=== PATIENT | female | born 1955 | race Caucasian/White ===

== ENCOUNTER 2022-11-02 14:54 | Emergency (ER) | payer MEDICARE, MEDICAID ==
[~2022-11-02] VITALS: Ht 162.6 cm; Wt 67.4 kg
[2022-11-02 16:05] LABS: CLARITY,URINE SLIGHTLY CLOUDY (Clear); COLOR,URINE YELLOW (Yellow); GLUCOSE, URINE NEGATIVE (Neg); KETONES,URINE TRACE mg/dl (Neg); LEUKOCYTE ESTERASE ,URINE SMALL (Neg); NITRITES, URINE POSITIVE (Neg); OCCULT BLOOD,URINE NEGATIVE (Neg); PH,URINE 5.5 (4.8-8.0); PROTEIN,URINE NEGATIVE (Neg); UROBILINOGEN,URINE 0.2 E.U/dL (0.2-1.0)
[2022-11-02 16:09] LABS: UA COLLECTION TYPE CLN CATCH MIDSTREAM
[2022-11-02 16:10] LABS: BACTERIA,URINE 3+ /HPF (Neg); MUCUS STRANDS NONE SEEN /LPF (Neg); RBC,URINE NONE SEEN /HPF (0-2); SQUAMOUS EPITHELIAL CELL,UR FEW /LPF (FEW)
[2022-11-02] MEDS ORDERED: CEPH-585 PO (16:31)
[2022-11-02 16:57] VITALS: BP 151/97
== END 2022-11-03 05:16 | disposition home or self-care (01) ==
LOC: ER 14:54
DX: N39.0 Urinary tract infection, site not specified (principal); Z88.2 Allergy status to sulfonamides
CPT/HCPCS: 81001; 87077; 87088; 87186; 99283

== ENCOUNTER 2024-05-28 01:52 | Inpatient (IN) | payer MEDICARE, OTHER ==
[~2024-05-28] VITALS: Ht 162.6 cm; Wt 65.9 kg
[2024-05-28] VITALS (16 sets, daily range): BP systolic 89–118; BP diastolic 54–71; PULSE 68–104; RESP 12–28; O2SAT 85–99
[2024-05-28 02:17] LABS: BASOPHILS % (AUTO) 0.4 % (0-1); EOSINOPHILS % (AUTO) 0.1 % (0-6); HEMATOCRIT 35.8 % (35.0-45.0); HEMOGLOBIN 12.2 g/dl (12.0-16.0); LYMPHOCYTES # (AUTO) 1.3 X10'3 (1.1-4.8); LYMPHOCYTES % (AUTO) 16.6 % (21-51); MEAN CORPUSCULAR HEMOGLOBIN 33.4 PG (27.0-31.0); MEAN CORPUSCULAR HGB CONC 34.1 g/dL (33.0-36.5); MEAN CORPUSCULAR VOLUME 97.8 FL (78-98); MEAN PLATELET VOLUME 7.8 FL (7.4-10.4); MONOCYTES # (AUTO) 0.2 X10'3 (0-0.9); MONOCYTES % (AUTO) 2.9 % (2-12); NEUTROPHILS # (AUTO) 6.3 X10'3 (1.8-7.7); PLATELET COUNT 238 X10'3 (140-440); RED BLOOD COUNT 3.66 X10'6 (4.20-5.60); RED CELL DISTRIBUTION WIDTH 12.5 % (11.5-14.5); WHITE BLOOD COUNT 7.9 X10'3 (4.5-11.0)
[2024-05-28 02:31] LABS: ALANINE AMINOTRANSFERASE 48 U/L (12-78); ALBUMIN 3.6 G/DL (3.4-5.0); ALKALINE PHOSPHATASE 49 IU/L (46-116); ANION GAP 6 (8-16); ASPARTATE AMINO TRANSFERASE 47 U/L (10-37); BILIRUBIN,TOTAL 0.2 MG/DL (0.1-1.0); BLOOD UREA NITROGEN 28 MG/DL (7-18); BUN/CREATININE RATIO 38.9 (10.0-20.0); CALCIUM 8.7 MG/DL (8.5-10.1); CHLORIDE 108 MMOL/L (99-107); CREATININE 0.72 MG/DL (0.40-0.90); GLUCOSE 131 MG/DL (70-104); POTASSIUM 3.9 MMOL/L (3.5-5.1); SODIUM 140 MMOL/L (135-145); TOTAL CARBON DIOXIDE 26.3 MMOL/L (24-32); TOTAL PROTEIN 7.1 G/DL (6.4-8.2); eCRCL 65 ML/MIN; eGFR 81 ML/MIN
[2024-05-28 02:38] LABS: PRO BRAIN NATRIURETIC PEPTIDE 96 PG/ML (0-125)
[2024-05-28] MEDS ORDERED: heparin 10,000 units/1 ML INJ IV ONE (03:15)
[2024-05-28] MEDS ORDERED: heparin 10,000 units/1 ML INJ IV PRN (03:15)
[2024-05-28 03:31] LABS: APTT 28 SECONDS (22-32); PROTHROMBIN TIME 10.6 SECONDS (9.0-12.0)
[2024-05-28] MEDS: heparin 10,000 units/1 ML INJ IV ONE (03:39)
[2024-05-28] MEDS: heparin 25,000 UNIT/250ml bag 250 ML IV PRN (03:40)
[2024-05-28] MEDS: normal saline 1000ml 1,000 ML IV ONE ×2 (03:44→09:19)
[2024-05-28] MEDS: aspirin 325mg tablet PO ONE ×2 (03:45→20:44)
[2024-05-28] MEDS: ondansetron/PF 4mg/2ml inj IV ONE (03:46)
[2024-05-28] MEDS: MESSAGE TO NURSING IV ONE (03:50)
[2024-05-28] MEDS: nitroGLYCERIN 1gm ointment UD TP ONE (03:50)
[2024-05-28] MEDS: morphine 4 MG/ML inj SYRINge IV ONE (03:53)
[2024-05-28] MEDS ORDERED: potassium Cl 20 mEq SR tablet PO PRN (04:30)
[2024-05-28] MEDS ORDERED: magnesium sulf-water 4G/100mL 100 ML IV PRN (04:30)
[2024-05-28] MEDS ORDERED: magnesium sulf-water 2g/50mL 50 ML IV PRN (04:30)
[2024-05-28] MEDS ORDERED: HYDROmorphone inj. 0.5 MG/0.5 ML DISP.SYRIN IV PRN (04:30)
[2024-05-28] MEDS ORDERED: mag hydrox/Alum hydrox/simeth 30ml oral suspension PO PRN (04:30)
[2024-05-28] MEDS ORDERED: magnesium Cl slow-release 64mg tablet PO PRN (04:30)
[2024-05-28] MEDS: PERFLUTREN PROTEIN-A MICROSPHR (Optison) 0.22 MG/ML 3ML VIAL IV ONE (04:47)
[2024-05-28] MEDS ORDERED: nitroGLYCERIN 0.4mg SUBLingual tab SL PRN (05:05)
[2024-05-28 05:10] LABS: HEMOGLOBIN A1C 5.8 % (4.5-6.2)
[2024-05-28] MEDS ORDERED: albuterol 2.5 MG/3 ML nebule NEB PRN (05:20)
[2024-05-28] MEDS: normal saline 1000ml 1,000 ML IV SCH (05:32)
[2024-05-28] MEDS: atorvastatin 20mg tablet PO SCH (05:37)
[2024-05-28 07:45] LABS: POTASSIUM 4.3 MMOL/L (3.5-5.1)
[2024-05-28] MEDS: metoprolol tartrate 1mg/ml inj IV ONE (08:45)
[2024-05-28] MEDS: K and/or MAG REPLACEMENT MC SCH (08:52)
[2024-05-28] MEDS: docusate sod 100mg capsule PO SCH (08:54)
[2024-05-28] MEDS: aspirin 81mg tab.chew PO SCH (08:54)
[2024-05-28 09:22] LABS: CHOL/HDL RATIO 3.9 (0.00-4.99); CHOLESTEROL 219 MG/DL (0-200); HDL CHOLESTEROL 56 MG/DL (35-60); LDL CHOLESTEROL 144 MG/DL (50-100); TRIGLYCERIDES 177 MG/DL (20-135)
[2024-05-28] MEDS: metoprolol tartrate 25mg tablet PO SCH (10:00)
[2024-05-28] MEDS ORDERED: iohexol 350MG/ML 100ml bottle IV ONE ×3 (11:38→13:27)
[2024-05-28] MEDS ORDERED: nitroGLYCERIN 500mcg/5mL D5W 5 ML IV ONE ×3 (11:38→13:53)
[2024-05-28] MEDS ORDERED: heparin 1,000unit/ml 10ml vial 10 ML ONE (11:38)
[2024-05-28] MEDS ORDERED: iohexol 350 MG/ML 50ML vial IV ONE (11:38)
[2024-05-28] MEDS ORDERED: verapamil 2.5 mg/ml inj IV ONE (11:38)
[2024-05-28] MEDS ORDERED: LIDOcaine 1% (10mg/ml) 2ml vial ONE (11:38)
[2024-05-28] MEDS ORDERED: midazolam 1 mg/ML 2ml injection ONE (11:38)
[2024-05-28] MEDS ORDERED: fentaNYL/PF 50MCG/1 ML 2ML syringe ONE (11:38)
[2024-05-28] MEDS ORDERED: DOPamine 400mg/D5W 250ml 250 ML IV ONE (12:49)
[2024-05-28] MEDS ORDERED: ondansetron/PF 4mg/2ml inj ONE ×2 (13:00→13:20)
[2024-05-28] MEDS ORDERED: phenylephrine 10mg/ml inj. ONE (13:07)
[2024-05-28] MEDS ORDERED: LIDOcaine 1% 30ml preserv. free vial ONE (13:34)
[2024-05-28] MEDS ORDERED: heparin 1,000 UNITS/NS 500ml 500 ML ONE (13:35)
[2024-05-28] MEDS ORDERED: HYDROmorphone 1 mg/ml syringe ONE (13:37)
[2024-05-28] MEDS ORDERED: furosemide 40mg/4ml inj ONE ×2 (13:42→14:35)
[2024-05-28] MEDS ORDERED: ticagrelor 90mg tablet ONE (13:58)
[2024-05-28] MEDS ORDERED: DOBUTamine-DoBUTrex 500mg/D5W 250 ML IV ONE (14:40)
[2024-05-28 15:13] LABS: ABG BASE EXCESS -9.4 mmol/L (-2.0-3.0); ABG HCO3 18.1 mmol/L (21.0-28.0); ABG OXYGEN SATURATION 93.7 % (94.0-98.0); ABG PCO2 (T) 45.2 mmHg (32.0-45.0); ABG PO2 (T) 81.2 mmHg (83.0-108.0); ALLEN'S TEST POSITIVE; FCOHb 0.4 % (0.5-1.5); FHHb 6.3 % (0.0-5.0); FMetHb 0.3 % (0.0-1.5); MODE MASK - BIPAP; RESPIRATORY RATE 12 b/min; TIDAL VOLUME 504 mL; TOTAL HEMOGLOBIN 14.1 G/dl (12.0-16.0)
[2024-05-28] MEDS: aspirin 325mg tablet, delayed-release (Ecotrin) PO ONE (17:05)
[2024-05-28] MEDS: LidoCAINE 2% Topical Jelly 11mL syringe (UROJET) TOP ONE (17:07)
[2024-05-28 17:27] LABS: ABG BASE EXCESS -7.1 mmol/L (-2.0-3.0); ABG HCO3 18.9 mmol/L (21.0-28.0); ABG OXYGEN SATURATION 89.4 % (94.0-98.0); ABG PCO2 (T) 40.4 mmHg (32.0-45.0); ABG PO2 (T) 62.1 mmHg (83.0-108.0); FCOHb 0.2 % (0.5-1.5); FHHb 10.5 % (0.0-5.0); FLOW 35 L/min; FMetHb 0.3 % (0.0-1.5); MODE HIGH FLOW; PATIENT TEMPERATURE 37.2; TOTAL HEMOGLOBIN 13.7 G/dl (12.0-16.0)
[2024-05-28 17:46] LABS: ALANINE AMINOTRANSFERASE 120 U/L (12-78); ALBUMIN 3.3 G/DL (3.4-5.0); ALBUMIN/GLOBULIN RATIO 0.8 (1.1-1.5); ALKALINE PHOSPHATASE 57 IU/L (46-116); ANION GAP 10 (8-16); ASPARTATE AMINO TRANSFERASE 535 U/L (10-37); BILIRUBIN,TOTAL 0.4 MG/DL (0.1-1.0); BLOOD UREA NITROGEN 17 MG/DL (7-18); BUN/CREATININE RATIO 27.4 (10.0-20.0); CALCIUM 7.5 MG/DL (8.5-10.1); CHLORIDE 110 MMOL/L (99-107); CREATININE 0.62 MG/DL (0.40-0.90); GLUCOSE 144 MG/DL (70-104); POTASSIUM 4.1 MMOL/L (3.5-5.1); SODIUM 140 MMOL/L (135-145); TOTAL CARBON DIOXIDE 20.3 MMOL/L (24-32); TOTAL PROTEIN 7.4 G/DL (6.4-8.2); eCRCL 75 ML/MIN; eGFR > 90 ML/MIN
[2024-05-28] MEDS: furosemide 40mg/4ml inj IV SCH (19:32)
[2024-05-28] MEDS: DOBUTamine 2000 MCG/250ML BAG IV SCH (20:34)
[2024-05-28] MEDS: ticagrelor 90mg tablet PO ONE (20:44)
[2024-05-29] VITALS (23 sets, daily range): BP systolic 81–112; BP diastolic 47–69; PULSE 72–114; RESP 12–27; TEMP 97.6–97.8; O2SAT 93–99
[2024-05-29 01:52] LABS: BASOPHILS % (AUTO) 0.1 % (0-1); EOSINOPHILS % (AUTO) 0 % (0-6); HEMATOCRIT 32.2 % (35.0-45.0); LYMPHOCYTES # (AUTO) 1.1 X10'3 (1.1-4.8); LYMPHOCYTES % (AUTO) 9.7 % (21-51); MEAN CORPUSCULAR HEMOGLOBIN 33.1 PG (27.0-31.0); MEAN CORPUSCULAR HGB CONC 34.2 g/dL (33.0-36.5); MEAN PLATELET VOLUME 7.7 FL (7.4-10.4); MONOCYTES # (AUTO) 0.7 X10'3 (0-0.9); MONOCYTES % (AUTO) 6.3 % (2-12); NEUTROPHILS # (AUTO) 9.5 X10'3 (1.8-7.7); NEUTROPHILS % (AUTO) 83.9 % (42-75); PLATELET COUNT 172 X10'3 (140-440); RED BLOOD COUNT 3.32 X10'6 (4.20-5.60); RED CELL DISTRIBUTION WIDTH 12.9 % (11.5-14.5); WHITE BLOOD COUNT 11.3 X10'3 (4.5-11.0)
[2024-05-29 02:13] LABS: ALANINE AMINOTRANSFERASE 113 U/L (12-78); ALBUMIN 2.8 G/DL (3.4-5.0); ALBUMIN/GLOBULIN RATIO 0.8 (1.1-1.5); ALKALINE PHOSPHATASE 41 IU/L (46-116); ANION GAP 6 (8-16); ASPARTATE AMINO TRANSFERASE 453 U/L (10-37); BILIRUBIN,TOTAL 0.4 MG/DL (0.1-1.0); BLOOD UREA NITROGEN 15 MG/DL (7-18); BUN/CREATININE RATIO 19.2 (10.0-20.0); CALCIUM 6.9 MG/DL (8.5-10.1); CHLORIDE 107 MMOL/L (99-107); CREATININE 0.78 MG/DL (0.40-0.90); GLUCOSE 122 MG/DL (70-104); MAGNESIUM 1.5 MG/DL (1.5-2.4); POTASSIUM 3.3 MMOL/L (3.5-5.1); PRO BRAIN NATRIURETIC PEPTIDE 2376 PG/ML (0-125); SODIUM 139 MMOL/L (135-145); TOTAL CARBON DIOXIDE 25.8 MMOL/L (24-32); TOTAL PROTEIN 6.1 G/DL (6.4-8.2); eCRCL 60 ML/MIN; eGFR 73 ML/MIN
[2024-05-29] MEDS: potassium Cl 40MEQ/1/2NS 520ml 520 ML IV PRN (03:27)
[2024-05-29] MEDS: aspirin 81mg, enteric-coated 1 TAB TABLET.DR PO SCH (07:39)
[2024-05-29] MEDS: ticagrelor 90mg tablet PO SCH (07:39)
[2024-05-29] MEDS: HYDROmorphone/PF 0.2 MG/ML SYRINGE IV PRN (07:51)
[2024-05-29] MEDS ORDERED: ESTR10TA9 VG (11:43)
[2024-05-29] MEDS: furosemide 20 MG/2 ML vial IV ONE (12:18)
[2024-05-29] MEDS: HYDROcodone/acetaminophen 10/325mg tab PO PRN (12:18)
[2024-05-29 14:20] LABS: MAGNESIUM 1.7 MG/DL (1.5-2.4); PHOSPHORUS 1.7 MG/DL (2.3-4.5); POTASSIUM 3.6 MMOL/L (3.5-5.1)
[2024-05-29] MEDS: potassium Cl 20 mEq SR tablet PO PRN ×2 (15:00→20:14)
[2024-05-29] MEDS: magnesium hydroxide 30ml (MOM) UD suspension PO PRN (15:10)
[2024-05-29] MEDS: furosemide 20 MG/2 ML vial IV SCH (19:50)
[2024-05-29] MEDS: atorvastatin 20mg tablet PO SCH (19:50)
[2024-05-29] MEDS: ESTRADIOL 10 MCG VG SCH (21:00)
[2024-05-29] MEDS: Neutra Phos packet PO PRN (21:10)
[2024-05-29] MEDS: LORazepam 0.5 MG tablet PO ONE (23:26)
[2024-05-30] VITALS (13 sets, daily range): BP systolic 88–118; BP diastolic 48–77; PULSE 96–109; RESP 11–23; TEMP 97.5–98.3; O2SAT 93–97
[2024-05-30 06:37] LABS: BASOPHILS % (AUTO) 0.2 % (0-1); EOSINOPHILS % (AUTO) 0.1 % (0-6); HEMATOCRIT 28.8 % (35.0-45.0); HEMOGLOBIN 9.9 g/dl (12.0-16.0); LYMPHOCYTES # (AUTO) 1.3 X10'3 (1.1-4.8); LYMPHOCYTES % (AUTO) 13.8 % (21-51); MEAN CORPUSCULAR HEMOGLOBIN 33.6 PG (27.0-31.0); MEAN CORPUSCULAR HGB CONC 34.4 g/dL (33.0-36.5); MEAN CORPUSCULAR VOLUME 97.7 FL (78-98); MONOCYTES # (AUTO) 0.8 X10'3 (0-0.9); MONOCYTES % (AUTO) 8.8 % (2-12); NEUTROPHILS % (AUTO) 77.1 % (42-75); PLATELET COUNT 177 X10'3 (140-440); RED BLOOD COUNT 2.95 X10'6 (4.20-5.60); RED CELL DISTRIBUTION WIDTH 12.8 % (11.5-14.5); WHITE BLOOD COUNT 9.1 X10'3 (4.5-11.0)
[2024-05-30 07:22] LABS: ALANINE AMINOTRANSFERASE 80 U/L (12-78); ALBUMIN 2.8 G/DL (3.4-5.0); ALBUMIN/GLOBULIN RATIO 0.8 (1.1-1.5); ALKALINE PHOSPHATASE 40 IU/L (46-116); ANION GAP 6 (8-16); ASPARTATE AMINO TRANSFERASE 217 U/L (10-37); BILIRUBIN,TOTAL 0.8 MG/DL (0.1-1.0); BLOOD UREA NITROGEN 8 MG/DL (7-18); BUN/CREATININE RATIO 14.8 (10.0-20.0); CHLORIDE 104 MMOL/L (99-107); CREATININE 0.54 MG/DL (0.40-0.90); GLUCOSE 100 MG/DL (70-104); MAGNESIUM 1.7 MG/DL (1.5-2.4); PHOSPHORUS 2.3 MG/DL (2.3-4.5); POTASSIUM 4.4 MMOL/L (3.5-5.1); PRO BRAIN NATRIURETIC PEPTIDE 3845 PG/ML (0-125); SODIUM 136 MMOL/L (135-145); TOTAL CARBON DIOXIDE 25.6 MMOL/L (24-32); TOTAL PROTEIN 6.5 G/DL (6.4-8.2); eCRCL 86 ML/MIN; eGFR > 90 ML/MIN
[2024-05-30] MEDS: ondansetron/PF 4mg/2ml inj IV PRN (10:22)
[2024-05-30] MEDS: pantoprazole 40 MG vial IV SCH (12:32)
[2024-05-30] MEDS: isosorbide mononitrate 30mg tab.SR.24H PO SCH (12:32)
[2024-05-30] MEDS ORDERED: isosorbide mononitrate 30mg tab.SR.24H PO SCH (12:45)
[2024-05-30] MEDS ORDERED: pantoprazole 40 MG vial IV SCH (12:45)
[2024-05-30 13:38] LABS: PRO BRAIN NATRIURETIC PEPTIDE 3755 PG/ML (0-125)
[2024-05-30] MEDS: acetaminophen 325mg tablet PO PRN (16:58)
[2024-05-30] MEDS: DOBUTamine-DoBUTrex 500mg/D5W 250 ML IV SCH (18:04)
[2024-05-30 18:34] LABS: FERRITIN 260 NG/ML (8-252)
[2024-05-30 18:50] LABS: % IRON SATURATION 8 % (11-46); IRON 21 UG/DL (49-151); TOTAL IRON BINDING CAPACITY 265 UG/DL (259-388)
[2024-05-30] MEDS: nitroGLYCERIN 0.4mg SUBLingual tab SL PRN (21:15)
[2024-05-31] VITALS (10 sets, daily range): BP systolic 90–121; BP diastolic 59–85; PULSE 89–103; RESP 14–19; TEMP 97.3–100.1; O2SAT 93–100
[2024-05-31 02:05] LABS: BILIRUBIN,URINE NEGATIVE (Neg); COLOR,URINE YELLOW (Yellow); GLUCOSE, URINE NEGATIVE (Neg); KETONES,URINE NEGATIVE (Neg); LEUKOCYTE ESTERASE ,URINE MODERATE (Neg); NITRITES, URINE NEGATIVE (Neg); OCCULT BLOOD,URINE TRACE-INTACT (Neg); PROTEIN,URINE NEGATIVE (Neg); UROBILINOGEN,URINE 0.2 E.U/dL (0.2-1.0)
[2024-05-31 02:08] LABS: CLARITY,URINE SLIGHTLY CLOUDY (Clear); UA COLLECTION TYPE NON-SPECIFIED
[2024-05-31 02:14] LABS: BACTERIA,URINE 1+ /HPF (Neg); RBC,URINE 0-2 /HPF (0-2); SQUAMOUS EPITHELIAL CELL,UR FEW /LPF (FEW); WBC,URINE 50-100 /HPF (0-4)
[2024-05-31 06:38] LABS: BASOPHILS % (AUTO) 0.4 % (0-1); EOSINOPHILS % (AUTO) 0.3 % (0-6); HEMOGLOBIN 9.8 g/dl (12.0-16.0); LYMPHOCYTES # (AUTO) 1.1 X10'3 (1.1-4.8); LYMPHOCYTES % (AUTO) 14.3 % (21-51); MEAN CORPUSCULAR HEMOGLOBIN 33.5 PG (27.0-31.0); MEAN CORPUSCULAR HGB CONC 34.9 g/dL (33.0-36.5); MEAN CORPUSCULAR VOLUME 96.1 FL (78-98); MEAN PLATELET VOLUME 8.2 FL (7.4-10.4); MONOCYTES # (AUTO) 0.6 X10'3 (0-0.9); NEUTROPHILS # (AUTO) 5.9 X10'3 (1.8-7.7); PLATELET COUNT 170 X10'3 (140-440); RED BLOOD COUNT 2.91 X10'6 (4.20-5.60); RED CELL DISTRIBUTION WIDTH 12.6 % (11.5-14.5); WHITE BLOOD COUNT 7.7 X10'3 (4.5-11.0)
[2024-05-31 07:28] LABS: ALANINE AMINOTRANSFERASE 65 U/L (12-78); ALBUMIN 2.9 G/DL (3.4-5.0); ALBUMIN/GLOBULIN RATIO 0.7 (1.1-1.5); ALKALINE PHOSPHATASE 43 IU/L (46-116); ANION GAP 10 (8-16); ASPARTATE AMINO TRANSFERASE 140 U/L (10-37); BLOOD UREA NITROGEN 7 MG/DL (7-18); CALCIUM 8.2 MG/DL (8.5-10.1); CHLORIDE 104 MMOL/L (99-107); CREATININE 0.54 MG/DL (0.40-0.90); GLUCOSE 102 MG/DL (70-104); PHOSPHORUS 3.2 MG/DL (2.3-4.5); POTASSIUM 3.5 MMOL/L (3.5-5.1); SODIUM 140 MMOL/L (135-145); TOTAL CARBON DIOXIDE 26.4 MMOL/L (24-32); TOTAL PROTEIN 6.8 G/DL (6.4-8.2); eCRCL 86 ML/MIN; eGFR > 90 ML/MIN
[2024-05-31] MEDS: pantoprazole 40mg Tablet.DR PO SCH (08:31)
[2024-05-31] MEDS: ferrous sulfate 325mg tablet PO SCH (08:32)
[2024-05-31] MEDS: acetaminophen 325mg tablet PO PRN (11:07)
[2024-05-31] MEDS: CefTRIAXone/D5W-Rocephin 1gm 50 ML IV SCH (11:40)
[2024-05-31 12:44] LABS: PRO BRAIN NATRIURETIC PEPTIDE 3357 PG/ML (0-125)
[2024-05-31] MEDS: OXAZEpam 10mg capsule PO PRN (18:33)
[2024-05-31] MEDS: atorvastatin 10mg tablet PO SCH (20:00)
[2024-06-01] MEDS: Melatonin 3mg tablet PO ONE (01:57)
[2024-06-01 02:00] VITALS: BP 125/66; PULSE 94; RESP 18; TEMP 98.6; O2SAT 96
[2024-06-01] MEDS: loratadine 10mg tablet PO ONE (03:21)
[2024-06-01 06:00] VITALS: BP 141/78; PULSE 87; RESP 14; TEMP 96.9; O2SAT 95
[2024-06-01 06:40] LABS: BASOPHILS % (AUTO) 0.4 % (0-1); EOSINOPHILS # (AUTO) 0.1 X10'3 (0-0.9); EOSINOPHILS % (AUTO) 0.9 % (0-6); HEMOGLOBIN 10.9 g/dl (12.0-16.0); LYMPHOCYTES # (AUTO) 1.2 X10'3 (1.1-4.8); LYMPHOCYTES % (AUTO) 17.2 % (21-51); MEAN CORPUSCULAR HEMOGLOBIN 33.6 PG (27.0-31.0); MEAN CORPUSCULAR VOLUME 96.1 FL (78-98); MEAN PLATELET VOLUME 8.4 FL (7.4-10.4); MONOCYTES # (AUTO) 0.7 X10'3 (0-0.9); MONOCYTES % (AUTO) 11.1 % (2-12); NEUTROPHILS # (AUTO) 4.7 X10'3 (1.8-7.7); NEUTROPHILS % (AUTO) 70.4 % (42-75); PLATELET COUNT 205 X10'3 (140-440); RED BLOOD COUNT 3.23 X10'6 (4.20-5.60); RED CELL DISTRIBUTION WIDTH 12.4 % (11.5-14.5); WHITE BLOOD COUNT 6.7 X10'3 (4.5-11.0)
[2024-06-01 06:50] LABS: ALANINE AMINOTRANSFERASE 50 U/L (12-78); ALBUMIN 2.7 G/DL (3.4-5.0); ALBUMIN/GLOBULIN RATIO 0.6 (1.1-1.5); ALKALINE PHOSPHATASE 54 IU/L (46-116); ANION GAP 9 (8-16); ASPARTATE AMINO TRANSFERASE 87 U/L (10-37); BILIRUBIN,TOTAL 0.7 MG/DL (0.1-1.0); BLOOD UREA NITROGEN 8 MG/DL (7-18); BUN/CREATININE RATIO 14.3 (10.0-20.0); CALCIUM 8.5 MG/DL (8.5-10.1); CHLORIDE 99 MMOL/L (99-107); CREATININE 0.56 MG/DL (0.40-0.90); GLUCOSE 107 MG/DL (70-104); MAGNESIUM 1.8 MG/DL (1.5-2.4); PHOSPHORUS 3.5 MG/DL (2.3-4.5); POTASSIUM 3.2 MMOL/L (3.5-5.1); SODIUM 134 MMOL/L (135-145); TOTAL CARBON DIOXIDE 25.9 MMOL/L (24-32); TOTAL PROTEIN 7.1 G/DL (6.4-8.2); eCRCL 83 ML/MIN; eGFR > 90 ML/MIN
[2024-06-01] MEDS ORDERED: ISOS30TA84 PO (07:36)
[2024-06-01] MEDS ORDERED: NITR0.4T51 SL (07:36)
[2024-06-01] MEDS ORDERED: LOP25T PO (07:36)
[2024-06-01] MEDS ORDERED: ASPI-1071 PO (07:36)
[2024-06-01] MEDS ORDERED: ROSU40TA PO (07:36)
[2024-06-01] MEDS ORDERED: FER325T PO (07:36)
[2024-06-01] MEDS ORDERED: SPIR25TA PO (07:37)
[2024-06-01] MEDS ORDERED: LOSA50TA64 PO (07:38)
[2024-06-01] MEDS ORDERED: CEPH250T PO (07:40)
[2024-06-01] MEDS ORDERED: LACT1CAP26 PO (07:41)
[2024-06-01] MEDS ORDERED: FURO-150 PO (07:43)
[2024-06-01] MEDS ORDERED: TICA90TA PO (07:47)
[2024-06-01 08:00] VITALS: RESP 18; O2SAT 96
[2024-06-01 11:00] VITALS: BP 95/62; PULSE 84; RESP 18; TEMP 98.6; O2SAT 96
[2024-06-01] MEDS ORDERED: PANT40TA54 PO (11:39)
== END 2024-06-01 17:52 | disposition home or self-care (01) | DRG 321 ==
LOC: ER 01:52 → ED HOLD 04:04 → UNDOADMIN 04:04 → ED HOLD 15:23 → CICU 2S 15:57 → PCU 3S 05-29 16:19
PROVIDERS: ADMIT Internal Medicine Critical Care Medicine; ATTEND Internal Medicine Cardiovascular Disease
PROC: 4A023N7 Measurement of Cardiac Sampling and Pressure, Left Heart, Percutaneous Approach (ICD-10-PCS; principal; 2024-05-28)
PROC: 027034Z Dilation of Coronary Artery, One Artery with Drug-eluting Intraluminal Device, Percutaneous Approach (ICD-10-PCS; 2024-05-28)
PROC: B2111ZZ Fluoroscopy of Multiple Coronary Arteries using Low Osmolar Contrast (ICD-10-PCS; 2024-05-28)
DX: I21.4 Non-ST elevation (NSTEMI) myocardial infarction (principal); J81.0 Acute pulmonary edema; F32.A Depression, unspecified; E78.5 Hyperlipidemia, unspecified; I34.0 Nonrheumatic mitral (valve) insufficiency; D64.9 Anemia, unspecified; I95.9 Hypotension, unspecified; F41.9 Anxiety disorder, unspecified; J45.909 Unspecified asthma, uncomplicated; Z88.2 Allergy status to sulfonamides; Z87.891 Personal history of nicotine dependence
CPT/HCPCS: 92920; 93306; 93458; 99291; C9600; 36415; 36600; 71045; 76937; 80053; 80061; 81001; 82728; 82803; 83036; 83540; 83550; 83735; 83880; 84100; 84132; 84484; 85018; 85025; 85347; 85610; 85730; 87081; 87088; 93005; 94660; 94760; 97116; 97161; 97530; 99152; 99153; A4314; A4615; A6258; C1725; C1751; C1769; C1874; C1892; C1894; G0378; J0696; J1171; J1250; J1265; J1644; J1940; J2003; J2250; J2270; J2371; J2405; J2470; J3010; J3480; J3490; J7030; Q9967